=== PATIENT | male | born 1980 | race Caucasian/White ===

== ENCOUNTER 2016-12-16 12:53 | Emergency (ER) | payer MEDICARE, MEDICAID ==
[2014-12-07 10:45] VITALS: BMI 20.4
[~2016-12-16 12:53] MED LIST: BUPRENORPHINE HC8 MG SL; CLONAZEPAM2 MG/TAB PO; DILANTIN100 MG PO; TYLENOL W/CODEI1 TAB PO; [UNRECOGNIZED DRUG - OTHER] SL
== END 2016-12-16 12:59 | disposition left against medical advice (07) ==
LOC: D.ER 12:53
DX: Z02.9 Encounter for administrative examinations, unspecified (principal)

== ENCOUNTER → 2019-04-05 08:37 | Outpatient (CLI) | payer MEDICARE ==
[2014-12-07 10:45] VITALS: BMI 20.4
== END | disposition home or self-care (01) ==
LOC: D.CT 08:30
PROVIDERS: ATTEND Registered Nurse Emergency
DX: R22.2 Localized swelling, mass and lump, trunk (principal)

== ENCOUNTER 2019-05-06 05:51 | Day surgery (SDC) | payer MEDICARE ==
[~2019-05-06] VITALS: Ht 185.4 cm; Wt 73.9 kg
[2019-05-06 07:13] VITALS: BP 129/82; Ht 185.4 cm; Wt 73.9 kg
--- NOTE | 2019-05-06 15:43 | NUR ---
1251 IV DC'D. CATHETER TIP INTACT. NO BLEEDING AT SITE. BANDAID APPLIED.
--- NOTE | 2019-05-06 15:44 | NUR ---
1530 PT LEFT DISCHARGE INSTRUCTIONS IN OPS. MADE A FOLLOW UP CALL TO REVIEW INSTRUCTIONS WITH PT. HE HAS F/U APPT DATE WITH DR GENTILE ON MAY 26 AT 9:30 AM. PT STATES HIS FATHER HAS BROUGHT HIM HIS PAIN MEDS THAT WERE PRESCRIBED BY DR GENTILE. PT HAS NO QUESTIONS ON CARE. I TOLD PT I WOULD MAIL DISCHARGE PAPERS TO HIM.
--- NOTE | 2019-05-06 15:53 | NUR ---
1211 PT ASKING FOR PAIN MEDICATION. REPORTS PAIN LEVEL AT 9. PAIN MEDICINE GIVEN. 1250 PT STATES PAIN LEVEL IS STILL A 9 OUT OF 10 BUT FEELS PAIN IS AGGREVATED BY LYING ON THE STRETCHER AND HE WANTS TO GO HOME AND GET COMFORTABLE AT HOME.
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
== END 2019-05-06 13:11 | disposition home or self-care (01) ==
LOC: D.OPS 05:51 → D.PAN 08:00 → D.OPS 08:00 → D.PAN 11:00 → D.OPS 11:00
PROVIDERS: ATTEND Surgery
DX: Z18.10 Retained metal fragments, unspecified (principal); R22.2 Localized swelling, mass and lump, trunk; F17.200 Nicotine dependence, unspecified, uncomplicated; F41.9 Anxiety disorder, unspecified

== ENCOUNTER 2019-12-13 09:52 | Emergency (ER) | payer MEDICARE ==
[~2019-12-13] VITALS: Ht 185.4 cm; Wt 72.7 kg
[2019-12-13 09:59] VITALS: BP 145/88; Ht 185.4 cm; Wt 72.7 kg
[2019-12-13] MEDS ORDERED: OCUFLOX 0.3 % OP5 ML LEFT EYE (11:03)
[2019-12-13] MEDS ORDERED: AUGMENTIN 875-11 TAB PO (11:03)
[2019-12-13] MEDS ORDERED: DICLOFENAC SODI50 MG PO (11:09)
== END 2019-12-13 12:40 | disposition home or self-care (01) ==
LOC: D.ER 09:52
DX: S09.90XA Unspecified injury of head, initial encounter (principal); Y09 Assault by unspecified means; S01.81XA Laceration without foreign body of other part of head, initial encounter; S05.02XA Injury of conjunctiva and corneal abrasion without foreign body, left eye, initial encounter